=== PATIENT | male | born 1960 | race Caucasian/White ===

== ENCOUNTER 2017-08-17 08:40 | Emergency (ER) | payer OTHER, SELFPAY ==
[~2017-08-17] VITALS: Ht 182.9 cm; Wt 88.4 kg
[2017-08-17 08:41] VITALS: BP 148/84
[2017-08-17] MEDS ORDERED: KETOROLAC 30 MG/1 ML IM ONE (09:00)
[2017-08-17] MEDS ORDERED: KETOROLAC 30 MG/1 ML ONE (09:07)
== END 2017-08-17 10:08 | disposition home or self-care (01) ==
LOC: ED 09:40
DX: S70.02XA Contusion of left hip, initial encounter (principal); S20.212A Contusion of left front wall of thorax, initial encounter; W01.0XXA Fall on same level from slipping, tripping and stumbling without subsequent striking against object, initial encounter; Y93.89 Activity, other specified; Y92.89 Other specified places as the place of occurrence of the external cause; Y99.8 Other external cause status
CPT/HCPCS: 71101; 73502; 96372; 99284; J1885